=== PATIENT | male | born 1950 | race Caucasian/White ===

== ENCOUNTER 2017-08-10 10:12 | Day surgery (SDC) | payer BC, MEDICARE ==
[2017-08-09 14:04] LABS: BASOPHILS % (AUTO) 0.3 % (0-1); EOSINOPHILS # (AUTO) 0.3 X10'3 (0-0.9); EOSINOPHILS % (AUTO) 2.6 % (0-6); HEMATOCRIT 43.8 % (42.0-52.0); HEMOGLOBIN 15.1 g/dl (14.0-17.9); LYMPHOCYTES # (AUTO) 1.9 X10'3 (1.1-4.8); LYMPHOCYTES % (AUTO) 18.7 % (21-51); MEAN CORPUSCULAR HEMOGLOBIN 30.2 PG (27.0-31.0); MEAN CORPUSCULAR HGB CONC 34.6 % (33.0-36.5); MEAN CORPUSCULAR VOLUME 87.3 FL (78-98); MEAN PLATELET VOLUME 10.8 FL (7.4-10.4); MONOCYTES # (AUTO) 0.5 X10'3 (0-0.9); MONOCYTES % (AUTO) 5.5 % (2-12); NEUTROPHILS # (AUTO) 7.2 X10'3 (1.8-7.7); NEUTROPHILS % (AUTO) 72.9 % (42-75); PLATELET COUNT 174 X10'3 (140-440); RED BLOOD COUNT 5.01 X10'6 (4.70-6.10); RED CELL DISTRIBUTION WIDTH 15.3 % (11.5-14.5); WHITE BLOOD COUNT 9.9 X10'3 (4.5-11.0)
[2017-08-09 14:11] LABS: ALBUMIN 3.8 G/DL (3.4-5.0); ANION GAP 9 (8-16); BLOOD UREA NITROGEN 18 MG/DL (7-18); CALCIUM 9.2 MG/DL (8.5-10.1); CHLORIDE 106 MMOL/L (99-107); GLUCOSE 126 MG/DL (70-104); POTASSIUM 4.4 MMOL/L (3.5-5.1); PROTHROMBIN TIME 10.7 SECONDS (9.0-12.0); SODIUM 139 MMOL/L (135-145); TOTAL CARBON DIOXIDE 23.7 MMOL/L (24-32); eGFR 85 ML/MIN
[2017-08-10] VITALS (16 sets, daily range): BP systolic 115–151; BP diastolic 86–107
[~2017-08-10] VITALS: Ht 180.3 cm; Wt 98.2 kg
[~2017-08-10 10:12] MED LIST: DABI150C PO; DIGO125T4 PO; FEBU40TA PO; FLUT16SP2 NAS; FURO40TA4 PO; MULT1TAB74 PO; MYCO500T PO; POTA20TA10 PO; PRED1TAB PO; SODI650T29 PO; SOTA80TA PO; SOTA80TA69 PO; TACR1CAP28 PO; TEST75GE TP
[2017-08-10] MEDS ORDERED: fentaNYL/PF 50MCG/1 ML 2ML syringe IV ONE (10:25)
[2017-08-10] MEDS ORDERED: MIDAZolam 1mg/ml 10ml vial IV ONE (10:25)
[2017-08-10] MEDS ORDERED: normal saline 1000ml 1,000 ML IV SCH (10:25)
[2017-08-10] MEDS ORDERED: LIDOcaine 1% (10mg/ml) 2ml vial ONE (10:44)
[2017-08-10] MEDS ORDERED: ENOX40SY7 SUBCUT (11:31)
[2017-08-10] MEDS ORDERED: LANS30CA37 PO (11:31)
== END 2017-08-10 15:05 | disposition home or self-care (01) ==
LOC: SSTAY O 10:12 → EDSTATUS 12:30 → SSTAY O 15:05
PROVIDERS: ATTEND Internal Medicine Cardiovascular Disease
DX: I48.91 Unspecified atrial fibrillation (principal); I08.3 Combined rheumatic disorders of mitral, aortic and tricuspid valves; E78.5 Hyperlipidemia, unspecified; G47.30 Sleep apnea, unspecified; I12.9 Hypertensive chronic kidney disease with stage 1 through stage 4 chronic kidney disease, or unspecified chronic kidney disease; N18.6 End stage renal disease; Z95.0 Presence of cardiac pacemaker; Z94.0 Kidney transplant status; Z98.52 Vasectomy status; Z79.899 Other long term (current) drug therapy
CPT/HCPCS: 36415; 80048; 85025; 85610; 93312; 93325; J2250; J3010; J3490; J7030

== ENCOUNTER 2017-10-26 09:59 | Day surgery (SDC) | payer BC, MEDICARE ==
[2017-10-25 14:15] LABS: BASOPHILS % (AUTO) 0.3 % (0-1); EOSINOPHILS # (AUTO) 0.1 X10'3 (0-0.9); EOSINOPHILS % (AUTO) 1.1 % (0-6); HEMATOCRIT 41.6 % (42.0-52.0); HEMOGLOBIN 14.4 g/dl (14.0-17.9); LYMPHOCYTES # (AUTO) 1.7 X10'3 (1.1-4.8); LYMPHOCYTES % (AUTO) 17.6 % (21-51); MEAN CORPUSCULAR HEMOGLOBIN 30.4 PG (27.0-31.0); MEAN CORPUSCULAR HGB CONC 34.7 % (33.0-36.5); MEAN CORPUSCULAR VOLUME 87.8 FL (78-98); MEAN PLATELET VOLUME 11.1 FL (7.4-10.4); MONOCYTES # (AUTO) 0.5 X10'3 (0-0.9); MONOCYTES % (AUTO) 4.8 % (2-12); NEUTROPHILS # (AUTO) 7.5 X10'3 (1.8-7.7); NEUTROPHILS % (AUTO) 76.2 % (42-75); PLATELET COUNT 179 X10'3 (140-440); RED BLOOD COUNT 4.74 X10'6 (4.70-6.10); RED CELL DISTRIBUTION WIDTH 15.2 % (11.5-14.5); WHITE BLOOD COUNT 9.9 X10'3 (4.5-11.0)
[2017-10-25 14:21] LABS: PROTHROMBIN TIME 10.6 SECONDS (9.0-12.0)
[2017-10-25 14:23] LABS: ALBUMIN 3.8 G/DL (3.4-5.0); ANION GAP 10 (8-16); BLOOD UREA NITROGEN 19 MG/DL (7-18); BUN/CREATININE RATIO 19.6 (5.4-32.0); CALCIUM 9.3 MG/DL (8.5-10.1); CHLORIDE 105 MMOL/L (99-107); CREATININE 0.97 MG/DL (0.60-1.10); GLUCOSE 120 MG/DL (70-104); POTASSIUM 4.2 MMOL/L (3.5-5.1); SODIUM 142 MMOL/L (135-145); TOTAL CARBON DIOXIDE 26.6 MMOL/L (24-32); eGFR 78 ML/MIN
[2017-10-26] VITALS (13 sets, daily range): BP systolic 113–133; BP diastolic 86–103
[~2017-10-26] VITALS: Ht 180.3 cm; Wt 101.0 kg
[~2017-10-26 09:59] MED LIST changes: +APIX5TAB3 PO; -DABI150C PO; -DIGO125T4 PO; +FLEC100T2 PO; +METO-395 PO; -SOTA80TA PO; -SOTA80TA69 PO
[2017-10-26] MEDS ORDERED: MIDAZolam 5mg/ml 2ml vial IV PRN (10:25)
[2017-10-26] MEDS ORDERED: diphenhydrAMINE 25mg capsule PO ONE (10:25)
[2017-10-26] MEDS ORDERED: LORazepam 2 mg/ml vial IV ONE (10:25)
[2017-10-26] MEDS ORDERED: morphine 10mg/ml inj. IV PRN (10:25)
[2017-10-26] MEDS ORDERED: LORazepam 0.5 MG tablet PO ONE (11:20)
[2017-10-26] MEDS: normal saline 1000ml 1,000 ML IV SCH ×2 (11:24→12:58)
[2017-10-26] MEDS ORDERED: metoprolol succinate 25mg (24-HOUR) SR. Tablet PO ONE (13:08)
== END 2017-10-26 14:30 | disposition home or self-care (01) ==
LOC: SSTAY O 09:59 → EDSTATUS 12:30 → SSTAY O 14:30
PROVIDERS: ATTEND Internal Medicine Cardiovascular Disease
DX: I48.1 Persistent atrial fibrillation (principal); I08.0 Rheumatic disorders of both mitral and aortic valves; E78.5 Hyperlipidemia, unspecified; I49.5 Sick sinus syndrome; G47.33 Obstructive sleep apnea (adult) (pediatric); I11.0 Hypertensive heart disease with heart failure; I50.30 Unspecified diastolic (congestive) heart failure; M19.90 Unspecified osteoarthritis, unspecified site; Z95.0 Presence of cardiac pacemaker; Z87.891 Personal history of nicotine dependence; Z98.42 Cataract extraction status, left eye; Z94.0 Kidney transplant status; Z98.41 Cataract extraction status, right eye; Z85.828 Personal history of other malignant neoplasm of skin; F41.9 Anxiety disorder, unspecified; Z79.01 Long term (current) use of anticoagulants; Z79.899 Other long term (current) drug therapy; Z98.890 Other specified postprocedural states
CPT/HCPCS: 36415; 80048; 85025; 85610; 93312; J2250; J2270; J7030; Q0163; A4620

== ENCOUNTER 2018-06-08 08:13 | Outpatient (CLI) | payer BC, MEDICARE ==
[~2018-06-08] VITALS: Ht 180.3 cm; Wt 102.0 kg
[2018-06-08] VITALS (9 sets, daily range): BP systolic 132–158; BP diastolic 85–100
[~2018-06-08 08:13] MED LIST changes: -FLEC100T2 PO
[2018-06-08] MEDS ORDERED: normal saline 500ml IV soln 500 ML IV ONE (10:00)
[2018-06-08] MEDS ORDERED: aminophylline 250mg/10ml inj. IV PRN (10:00)
[2018-06-08] MEDS ORDERED: nitroGLYCERIN 0.4mg SUBLingual tab SL PRN (10:00)
[2018-06-08] MEDS ORDERED: regadenoson 0.4mg/5ml syringe IV ONE ×2 (10:00→10:02)
[2018-06-08] MEDS ORDERED: aminophylline inj. 10 ML IV ONE (10:02)
== END 2018-06-08 23:59 | disposition home or self-care (01) ==
LOC: RAD 08:13
PROVIDERS: ATTEND Internal Medicine Cardiovascular Disease
DX: Z01.818 Encounter for other preprocedural examination (principal); R07.9 Chest pain, unspecified; R06.02 Shortness of breath; I10 Essential (primary) hypertension
CPT/HCPCS: 78452; 93017; A9500; J0280; J7030

== ENCOUNTER 2019-05-10 10:10 | Outpatient (CLI) | payer SELFPAY ==
[2019-05-10 10:51] LABS: BASOPHILS % (AUTO) 0.4 % (0-1); EOSINOPHILS # (AUTO) 0.2 X10'3 (0-0.9); EOSINOPHILS % (AUTO) 1.7 % (0-6); HEMATOCRIT 42.8 % (42.0-52.0); HEMOGLOBIN 14.7 g/dl (14.0-17.9); LYMPHOCYTES # (AUTO) 1.9 X10'3 (1.1-4.8); LYMPHOCYTES % (AUTO) 18.6 % (21-51); MEAN CORPUSCULAR HEMOGLOBIN 29.3 PG (27.0-31.0); MEAN CORPUSCULAR HGB CONC 34.4 g/dL (33.0-36.5); MEAN PLATELET VOLUME 9.9 FL (7.4-10.4); MONOCYTES # (AUTO) 0.9 X10'3 (0-0.9); MONOCYTES % (AUTO) 8.3 % (2-12); NEUTROPHILS # (AUTO) 7.3 X10'3 (1.8-7.7); PLATELET COUNT 200 X10'3 (140-440); RED BLOOD COUNT 5.04 X10'6 (4.70-6.10); RED CELL DISTRIBUTION WIDTH 17.6 % (11.5-14.5); WHITE BLOOD COUNT 10.3 X10'3 (4.5-11.0)
[2019-05-10 11:04] LABS: ALBUMIN 3.2 G/DL (3.4-5.0); ANION GAP 10 (8-16); BLOOD UREA NITROGEN 19 MG/DL (7-18); BUN/CREATININE RATIO 19.4 (5.4-32.0); CHLORIDE 104 MMOL/L (99-107); CREATININE 0.98 MG/DL (0.60-1.10); GLUCOSE 145 MG/DL (70-104); POTASSIUM 4.1 MMOL/L (3.5-5.1); SODIUM 139 MMOL/L (135-145); TOTAL CARBON DIOXIDE 25.1 MMOL/L (24-32); eGFR 76 ML/MIN
== END 2019-05-10 14:07 | disposition home or self-care (01) ==
LOC: SSTAY O 10:10 → EDSTATUS 05-11 09:00
PROVIDERS: ATTEND Internal Medicine Cardiovascular Disease
DX: I48.91 Unspecified atrial fibrillation (principal)
CPT/HCPCS: 36415; 80048; 85025; 85610

== ENCOUNTER 2020-05-15 06:19 | Day surgery (SDC) | payer MEDICARE, BC ==
[2020-05-14 16:03] LABS: BASOPHILS # (AUTO) 0.1 X10'3 (0-0.2); BASOPHILS % (AUTO) 0.5 % (0-1); EOSINOPHILS # (AUTO) 0.1 X10'3 (0-0.9); EOSINOPHILS % (AUTO) 1.2 % (0-6); HEMATOCRIT 38.1 % (42.0-52.0); HEMOGLOBIN 12.9 g/dl (14.0-17.9); LYMPHOCYTES # (AUTO) 1.8 X10'3 (1.1-4.8); LYMPHOCYTES % (AUTO) 17.7 % (21-51); MEAN CORPUSCULAR HEMOGLOBIN 27.3 PG (27.0-31.0); MEAN CORPUSCULAR HGB CONC 33.9 g/dL (33.0-36.5); MEAN CORPUSCULAR VOLUME 80.6 FL (78-98); MONOCYTES # (AUTO) 0.7 X10'3 (0-0.9); MONOCYTES % (AUTO) 7.3 % (2-12); NEUTROPHILS # (AUTO) 7.4 X10'3 (1.8-7.7); NEUTROPHILS % (AUTO) 73.3 % (42-75); PLATELET COUNT 232 X10'3 (140-440); RED BLOOD COUNT 4.72 X10'6 (4.70-6.10); WHITE BLOOD COUNT 10.1 X10'3 (4.5-11.0)
[2020-05-14 16:08] LABS: ALBUMIN 3.3 G/DL (3.4-5.0); ANION GAP 11 (8-16); BLOOD UREA NITROGEN 18 MG/DL (7-18); BUN/CREATININE RATIO 21.4 (5.4-32.0); CHLORIDE 103 MMOL/L (99-107); CREATININE 0.84 MG/DL (0.60-1.10); GLUCOSE 133 MG/DL (70-104); POTASSIUM 4.1 MMOL/L (3.5-5.1); SODIUM 138 MMOL/L (135-145); TOTAL CARBON DIOXIDE 24.1 MMOL/L (24-32); eGFR > 90 ML/MIN
[2020-05-14 16:11] LABS: PARTIAL THROMBOPLASTIN TIME 28 SECONDS (22-32)
[~2020-05-15] VITALS: Ht 180.3 cm; Wt 99.7 kg
[2020-05-15] VITALS (10 sets, daily range): BP systolic 104–129; BP diastolic 61–85
[~2020-05-15 06:19] MED LIST changes: +MULT-620 PO; -MULT1TAB74 PO; +TACR1CAP24 PO; -TACR1CAP28 PO
[2020-05-15] MEDS ORDERED: normal saline 1,000 ML IV SCH (06:40)
[2020-05-15] MEDS ORDERED: diphenhydrAMINE 25mg capsule PO PRN (06:40)
[2020-05-15] MEDS ORDERED: LIDOcaine/PRILOcaine 5gm cream TP ONE (06:40)
[2020-05-15] MEDS ORDERED: LORazepam 0.5 MG tablet PO PRN (06:40)
[2020-05-15] MEDS ORDERED: ATOR10TA87 PO (06:53)
[2020-05-15] MEDS ORDERED: FLEC100T35 PO (06:53)
[2020-05-15] MEDS ORDERED: APIX2.5T PO (06:53)
[2020-05-15] MEDS ORDERED: fentaNYL/PF 50MCG/1 ML 2ML syringe ONE (07:29)
[2020-05-15] MEDS ORDERED: verapamil 2.5 mg/ml inj IV ONE (07:29)
[2020-05-15] MEDS ORDERED: nitroGLYCERIN-Tridil 50MG/D5W 250 ML IV ONE (07:29)
[2020-05-15] MEDS ORDERED: midazolam 2 mg/2 ml injection ONE (07:29)
[2020-05-15] MEDS ORDERED: LIDOcaine 1% (10mg/ml)w/preservative injection 20ml MDV ONE (07:29)
[2020-05-15] MEDS ORDERED: iohexol 350 MG/ML 50ML vial IV ONE ×2 (07:30→08:41)
[2020-05-15] MEDS ORDERED: iohexol 350MG/ML 100ml bottle IV ONE (07:30)
[2020-05-15] MEDS ORDERED: heparin 1,000unit/ml 10ml vial 10 ML ONE (07:30)
--- NOTE | 2020-05-15 09:20 | NUR ---
Pt back in room from procedure. NS running at 200ml/hr. vs stable as charted. Pt denies pain, denies cp. Pt site stable and vasc band in place. Will continue to monitor patient.
[2020-05-15] MEDS ORDERED: normal saline 1,000 ML IV ONE (09:47)
--- NOTE | 2020-05-15 12:31 | NUR ---
Pt vascular band removed by sterile technique. Pressure drsg in place. Pt denies numbness and tingling in his right hand. Fluids infusing as ordered. Will continue to monitor.
== END 2020-05-15 14:00 | disposition home or self-care (01) ==
LOC: SSTAY O 06:19
PROVIDERS: ATTEND Internal Medicine Cardiovascular Disease
DX: R94.39 Abnormal result of other cardiovascular function study (principal); I25.10 Atherosclerotic heart disease of native coronary artery without angina pectoris; I13.2 Hypertensive heart and chronic kidney disease with heart failure and with stage 5 chronic kidney disease, or end stage renal disease; N18.6 End stage renal disease; I50.30 Unspecified diastolic (congestive) heart failure; I48.92 Unspecified atrial flutter; E78.49 Other hyperlipidemia; G47.33 Obstructive sleep apnea (adult) (pediatric); I49.5 Sick sinus syndrome; I48.0 Paroxysmal atrial fibrillation; Z98.890 Other specified postprocedural states; Z85.828 Personal history of other malignant neoplasm of skin; Z94.0 Kidney transplant status; Z95.0 Presence of cardiac pacemaker; Z79.899 Other long term (current) drug therapy
CPT/HCPCS: 36415; 76937; 80048; 85025; 85610; 85730; 93005; 93458; 99152; 99153; C1769; C1894; J1644; J2001; J2250; J3010; J7030; Q0163; Q9967; A4620; A5120; A6258; C1751; J3490

== ENCOUNTER 2022-09-08 10:00 | Inpatient (IN) | payer BC, MEDICARE, OTHER ==
[2022-09-01 14:44] LABS: ALBUMIN 3.9 G/DL (3.4-5.0); ALKALINE PHOSPHATASE 91 IU/L (46-116); BLOOD UREA NITROGEN 18 MG/DL (7-18); BUN/CREATININE RATIO 21.4 (5.4-32.0); CALCIUM 9.3 MG/DL (8.5-10.1); CHLORIDE 105 MMOL/L (99-107); CREATININE 0.84 MG/DL (0.60-1.10); PRE OP ALT 25 U/L (30-65); PRE OP ANION GAP 7 (8-16); PRE OP AST 22 U/L (10-37); PRE OP BILIRUB, TOTAL 0.9 MG/DL (0.0-1.0); PRE OP GLUCOSE 148 MG/DL (70-104); PRE OP POTASSIUM 4.2 MMOL/L (3.4-5.1); PRE OP SODIUM 139 MMOL/L (135-145); TOTAL CARBON DIOXIDE 26.9 MMOL/L (24-32); eGFR 90 ML/MIN
[2022-09-01 15:10] LABS: BASOPHILS % (AUTO) 0.3 % (0-1); EOSINOPHILS # (AUTO) 0.1 X10'3 (0-0.9); EOSINOPHILS % (AUTO) 0.6 % (0-6); LYMPHOCYTES # (AUTO) 1.3 X10'3 (1.1-4.8); LYMPHOCYTES % (AUTO) 13.4 % (21-51); MEAN CORPUSCULAR HGB CONC 33.8 g/dL (33.0-36.5); MEAN CORPUSCULAR VOLUME 85.8 FL (78-98); MEAN PLATELET VOLUME 10.1 FL (7.4-10.4); MONOCYTES # (AUTO) 0.6 X10'3 (0-0.9); NEUTROPHILS # (AUTO) 7.7 X10'3 (1.8-7.7); NEUTROPHILS % (AUTO) 79.7 % (42-75); PRE OP HEMOGLOBIN 15.2 g/dL (14.0-17.9); PRE OP PLATELET COUNT 187 X10'3 (140-440); RED BLOOD COUNT 5.24 X10'6 (4.70-6.10); RED CELL DISTRIBUTION WIDTH 16.3 % (11.5-14.5)
[2022-09-08] VITALS (20 sets, daily range): BP systolic 118–167; BP diastolic 66–91
[~2022-09-08] VITALS: Ht 180.3 cm; Wt 97.1 kg
[~2022-09-08 10:00] MED LIST changes: +APIX2.5T PO; -APIX5TAB3 PO; -FEBU40TA PO; -FURO40TA4 PO; -METO-395 PO; -POTA20TA10 PO; +famotidine 20mg tablet PO ONE; +ringers solution, lacted 1,000 ML IV SCH
[2022-09-08] MEDS ORDERED: tetracaine 1% (10mg/ml) pres. free inj. ONE (10:47)
[2022-09-08] MEDS ORDERED: MIDAZolam 1mg/ml 10ml vial ONE (12:50)
[2022-09-08] MEDS ORDERED: ROPIVAcaine 0.5% (5mg/ml) 30ml vial ONE ×3 (12:52→13:31)
[2022-09-08] MEDS ORDERED: ceFAZolin 1000mg inj ONE ×3 (12:52→13:03)
[2022-09-08] MEDS ORDERED: vancomycin 1,000mg inj ONE ×2 (13:03→13:31)
[2022-09-08] MEDS ORDERED: VANCOMYCIN 1,500MG inj. 1,500 MG in normal saline 500ml IV soln 300 ML IV ONE (13:23)
[2022-09-08] MEDS ORDERED: gentamicin 40 MG/1 ML inj ONE (13:31)
[2022-09-08] MEDS ORDERED: enalaprilat dihydrate 2.5mg/2ml vial IV PRN (13:40)
[2022-09-08] MEDS ORDERED: morphine 2 MG/ML inj. syringe IV PRN (13:40)
[2022-09-08] MEDS ORDERED: fentaNYL/PF 50MCG/1 ML 2ML syringe IV PRN ×2 (13:40)
[2022-09-08] MEDS ORDERED: hydrALAZINE 20mg/ml inj. IV PRN (13:40)
[2022-09-08] MEDS ORDERED: morphine 4 MG/ML inj SYRINge IV PRN (13:40)
[2022-09-08] MEDS ORDERED: ondansetron/PF 4mg/2ml inj IV PRN ×2 (13:40→14:50)
[2022-09-08] MEDS ORDERED: ringers solution, lacted 1,000 ML IV SCH (13:40)
[2022-09-08] MEDS ORDERED: acetaminophen 325mg tablet PO PRN (14:50)
[2022-09-08] MEDS ORDERED: HYDROcodone/acetaminophen 10/325mg tab PO PRN ×2 (14:50)
[2022-09-08] MEDS ORDERED: magnesium hydroxide 30ml (MOM) UD suspension PO PRN (14:50)
[2022-09-08] MEDS ORDERED: HYDROmorphone inj. 0.5 MG/0.5 ML DISP.SYRIN IV PRN (14:50)
[2022-09-08] MEDS ORDERED: naloxone 0.4 mg/ml inj IV PRN (14:50)
[2022-09-08] MEDS ORDERED: bisacodyl 10mg suppository rectal RC PRN (14:50)
[2022-09-08] MEDS ORDERED: diphenhydrAMINE 25mg capsule PO PRN ×2 (14:50)
--- NOTE | 2022-09-08 14:55 | NUR ---
Received from OR via SURGICAL BED , accompanied by Anesthesiologist DR ROSALES and report given by Anesthesiolgist. PT AROUSABLE. STRONG PALPABLE PEDAL PULSE TO RIGHT FOOT. PT DENIES PAIN. DRSG TO RIGHT KNEE CDI. KNEE IMMOBILIZER IN PLACE.
--- NOTE | 2022-09-08 14:55 | NUR ---
F/C TO LEFT OF BED DRAINING CLEAR YELLOW URINE. PT NOT YET ABLE TO WIGGLE TOES. SENSATION LEVEL IS AT APPROX T6 LEVEL AT THIS TIME.
[2022-09-08 15:19] LABS: APPEARANCE,SYNOVIAL FLUID CLOUDY; COLOR,SYNOVIAL FLUID YELLOW; LYMPHOCYTES,SYNOVIAL FLUID 2 % (0-75); MONOCYTES,SYNOVIAL FLUID 2 % (0-0); NEUTROPHILS,SYNOVIAL FLUID 96 % (0-25); SYN RBC 450 /CU MM (0); SYN WBC 5950 /CU MM (0-200)
--- NOTE | 2022-09-08 15:55 | NUR ---
PT HAS BEEN RECOVERED FROM ANESTHESIA AND IS READY FOR X DAVE TO ROOM. NO ROOM YET AVAILABLE ON SURGICAL FLOOR SO PT WILL BE HELD IN PACU UNTILL ROOM IS AVAILABLE.
[2022-09-08] MEDS ORDERED: ceFAZolin/D5W- 1GM premix 50 ML IV SCH (16:00)
--- NOTE | 2022-09-08 17:28 | NUR ---
temp 36.7. vss. pt starting to shiver a bit. jairo hugger on. pt denies pain and nausea. will continue to monitor shivers and will give demerol if shivers continue.
--- NOTE | 2022-09-08 18:15 | NUR ---
PT NO LONGER SHIVERING. COMFORTABLE AND STILL AWAITING ROOM AND DINNER TRAY. PT SHOULD BE ABLE TO GO TO ROOM AFTER SHIFT CHANGE SHORTLY. REPORT GIVEN TO DAVID ABBOTT IN PACU WHO WILL ASSUME CARE UNTIL PT IS TRANSFERRED TO SURGICAL FLOOR.
--- NOTE | 2022-09-08 19:25 | NUR ---
PT TRANSPORTED BY STAFF TO ROOM 60B VIA BED. PT GIVEN CALL LIGHT AND NURSE IS AT BEDSIDE. PT BELONGINGS PLACED IN CLOSET; CPAP REMAINS AT BEDSIDE. Addendum: 09/08/22 at 1943 by Oralia Tinoco RN Amended: Links added.
--- NOTE | 2022-09-08 19:40 | NUR ---
PATIENT ADMITTED TO ROOM 360B FROM RECOVERY ROOM AFTER REMOVAL OF INFECTED RIGHT KNEE HARDWARE AND PLACEMENT OF ANTIBIOTIC SPACERS. PLACED COMFORTABLE IN BED. VITAL SIGNS TAKEN AND RECORDED.
--- NOTE | 2022-09-08 19:45 | NUR ---
PER RECOVERY ROOM NURSE PATIENT HAS BEEN ON POST OP VITAL IN RECOVERY ROOM, HAS BEEN BACK FROM OR SINCE 145 AND WAS JUST TRANSFERRED HERE IN SURGICAL FLOOR PATIENT JUST NEED POST OP HOURLY VITALS X2.
[2022-09-08] MEDS ORDERED: vancomycin/NS 1 GM ADD-VANTAGE 250 ML IV SCH (20:00)
[2022-09-08] MEDS: fluticasone nasal spray 16GM bottle NS SCH (20:00)
[2022-09-08] MEDS: potassium cl 20mEq in 1/2 NS 1,000 ML IV SCH (20:00)
[2022-09-08] MEDS: oxyCODONE IR 5mg (immed. release) tablet PO PRN (22:04)
[2022-09-08] MEDS: mycophenolate mofetil 250mg capsule PO SCH (22:05)
[2022-09-08] MEDS: sodium bicarbonate 650mg tablet PO SCH (22:06)
[2022-09-08] MEDS: tacrolimus anhydrous 1mg capsule PO SCH (22:07)
[2022-09-08] MEDS: apixaban 2.5mg tablet PO SCH (22:07)
[2022-09-08] MEDS: sennosides 8.6mg tablet PO SCH (22:08)
[2022-09-08] MEDS: ceFAZolin/D5W- 1GM premix 50 ML IV SCH (22:11)
[2022-09-09 02:00] VITALS: BP 156/78
[2022-09-09] MEDS: oxyCODONE IR 5mg (immed. release) tablet PO PRN ×3 (02:14→19:11)
[2022-09-09] MEDS: potassium cl 20mEq in 1/2 NS 1,000 ML IV SCH ×4 (02:16→22:50)
[2022-09-09] MEDS: ceFAZolin/D5W- 1GM premix 50 ML IV SCH (04:34)
[2022-09-09 06:00] VITALS: BP 158/76
--- NOTE | 2022-09-09 06:10 | NUR ---
Patient in room [facility]. I have received report from Manda Holman RN and had the opportunity to ask questions and assume patient care.
--- NOTE | 2022-09-09 06:46 | NUR ---
Problems reprioritized. Patient report given, questions answered & plan of care reviewed with SHIRAZ ABBOTT.
[2022-09-09 07:02] LABS: BASOPHILS % (AUTO) 0.1 % (0-1); EOSINOPHILS % (AUTO) 0.1 % (0-6); HEMATOCRIT 39.6 % (42.0-52.0); HEMOGLOBIN 13.7 g/dl (14.0-17.9); LYMPHOCYTES # (AUTO) 1.2 X10'3 (1.1-4.8); LYMPHOCYTES % (AUTO) 7.4 % (21-51); MEAN CORPUSCULAR HEMOGLOBIN 29.2 PG (27.0-31.0); MEAN CORPUSCULAR HGB CONC 34.5 g/dL (33.0-36.5); MEAN CORPUSCULAR VOLUME 84.5 FL (78-98); MEAN PLATELET VOLUME 9.8 FL (7.4-10.4); MONOCYTES # (AUTO) 1.7 X10'3 (0-0.9); MONOCYTES % (AUTO) 9.8 % (2-12); NEUTROPHILS % (AUTO) 82.6 % (42-75); PLATELET COUNT 187 X10'3 (140-440); RED BLOOD COUNT 4.69 X10'6 (4.70-6.10); RED CELL DISTRIBUTION WIDTH 15.5 % (11.5-14.5); WHITE BLOOD COUNT 16.9 X10'3 (4.5-11.0)
[2022-09-09 07:06] LABS: ANION GAP 8 (8-16); CHLORIDE 101 MMOL/L (99-107); SODIUM 132 MMOL/L (135-145); TOTAL CARBON DIOXIDE 23.1 MMOL/L (24-32)
[2022-09-09 07:07] LABS: POTASSIUM 4.3 MMOL/L (3.5-5.1)
[2022-09-09] MEDS: sodium bicarbonate 650mg tablet PO SCH ×3 (08:00→21:07)
[2022-09-09] MEDS: TESTOSTERONE PUMP TP SCH (08:00)
[2022-09-09] MEDS: fluticasone nasal spray 16GM bottle NS SCH ×2 (08:36→21:13)
[2022-09-09] MEDS: predniSONE 5mg tablet PO SCH (08:38)
[2022-09-09] MEDS: mycophenolate mofetil 250mg capsule PO SCH ×2 (08:38→21:08)
[2022-09-09] MEDS: tacrolimus anhydrous 1mg capsule PO SCH ×2 (08:38→21:08)
[2022-09-09] MEDS: aspirin 325mg tablet PO SCH (08:39)
[2022-09-09] MEDS: apixaban 2.5mg tablet PO SCH ×2 (08:39→21:08)
[2022-09-09] MEDS: multivitamins, therapeutics tablet PO SCH (08:39)
[2022-09-09 10:00] VITALS: BP 162/79
[2022-09-09] MEDS ORDERED: vancomycin/NS 1 GM ADD-VANTAGE 250 ML IV SCH (11:08)
--- NOTE | 2022-09-09 11:31 | NUR ---
Joint surgery consult: Pt s/p R TKA removal w/ antibiotic spacer placement this admit per EMR. Pt seen by TREY for written/verbal high protein diet ed w/ RD contact information provided. TREY encouraged pt to contact dietitian's office if further nutrition questions/concerns. Addendum: 09/09/22 at [address] Amended: Links added.
--- NOTE | 2022-09-09 12:14 | NUR ---
Picc nurse paged
[2022-09-09] MEDS ORDERED: VANCOmycin 2,000MG in NS 500ml IV soln IV ONE (12:30)
--- NOTE | 2022-09-09 14:08 | NUR ---
Called and spoke to pharmacist aware patient has history of renal disease. Per pharmacy per Creat[facility] clearance ok to give loading dose of vancomycin
--- NOTE | 2022-09-09 15:16 | NUR ---
Called picc nurse and she verified that picc line is ok to use. Will start antibiotics and fluids
[2022-09-09 18:00] VITALS: BP 151/101
--- NOTE | 2022-09-09 18:00 | NUR ---
I have reviewed and agree with interventions, assessments performed, and documentation by Beatrice Gastelum LVN.
--- NOTE | 2022-09-09 18:36 | NUR ---
Problems reprioritized. Patient report given, questions answered & plan of care reviewed with Manda Holman RN.
--- NOTE | 2022-09-09 18:40 | NUR ---
Patient in room [facility]. I have received report from SHIRAZ LAMB and had the opportunity to ask questions and assume patient care.
[2022-09-09] MEDS: sennosides 8.6mg tablet PO SCH (21:09)
[2022-09-09 22:00] VITALS: BP 137/64
[2022-09-10] MEDS: vancomycin/NS 1 GM ADD-VANTAGE 250 ML IV SCH ×2 (02:43→13:56)
[2022-09-10] MEDS: oxyCODONE IR 5mg (immed. release) tablet PO PRN ×4 (02:48→20:01)
[2022-09-10] MEDS: potassium cl 20mEq in 1/2 NS 1,000 ML IV SCH (05:27)
[2022-09-10] MEDS: HYDROmorphone 1 mg/ml syringe IV PRN (05:51)
[2022-09-10 06:00] VITALS: BP 151/64
--- NOTE | 2022-09-10 06:37 | NUR ---
Problems reprioritized. Patient report given, questions answered & plan of care reviewed with DOTTIE ABBOTT.
[2022-09-10 06:59] LABS: ALBUMIN 2.8 G/DL (3.4-5.0); ANION GAP 9 (8-16); BASOPHILS % (AUTO) 0.1 % (0-1); BLOOD UREA NITROGEN 10 MG/DL (7-18); BUN/CREATININE RATIO 14.5 (5.4-32.0); C-REACTIVE PROTEIN 19.95 MG/DL (0.0-0.5); CALCIUM 8.9 MG/DL (8.5-10.1); CHLORIDE 100 MMOL/L (99-107); CREATININE 0.69 MG/DL (0.60-1.10); EOSINOPHILS % (AUTO) 0 % (0-6); GLUCOSE 146 MG/DL (70-104); HEMATOCRIT 35.7 % (42.0-52.0); HEMOGLOBIN 12.2 g/dl (14.0-17.9); LYMPHOCYTES # (AUTO) 1.3 X10'3 (1.1-4.8); LYMPHOCYTES % (AUTO) 7.1 % (21-51); MEAN CORPUSCULAR HEMOGLOBIN 28.9 PG (27.0-31.0); MEAN CORPUSCULAR HGB CONC 34.2 g/dL (33.0-36.5); MEAN CORPUSCULAR VOLUME 84.5 FL (78-98); MEAN PLATELET VOLUME 10.4 FL (7.4-10.4); MONOCYTES # (AUTO) 2.1 X10'3 (0-0.9); MONOCYTES % (AUTO) 11.1 % (2-12); NEUTROPHILS # (AUTO) 15.3 X10'3 (1.8-7.7); NEUTROPHILS % (AUTO) 81.7 % (42-75); PLATELET COUNT 170 X10'3 (140-440); RED BLOOD COUNT 4.23 X10'6 (4.70-6.10); RED CELL DISTRIBUTION WIDTH 15.7 % (11.5-14.5); SODIUM 132 MMOL/L (135-145); TOTAL CARBON DIOXIDE 22.7 MMOL/L (24-32); WHITE BLOOD COUNT 18.7 X10'3 (4.5-11.0); eGFR > 90 ML/MIN
--- NOTE | 2022-09-10 07:18 | NUR ---
Notified Karina Brown of Hematoma/ blood blister at incision site of patients right knee. Reinforced dressing and wrapped with yeni wrap casa. and placed ice on it.
--- NOTE | 2022-09-10 07:44 | NUR ---
Spoke to Karina hinojosa regarding patient bleeding from blister at incision site, Received orders to still give patient his Eliquis this morning. She is also aware that patient has a slight temp of 100, and will give patient an IS and educate and encourage use. Also, she is aware that patient WBC came up today to 1837 from 16.9, no new orders at this time.
[2022-09-10] MEDS: fluticasone nasal spray 16GM bottle NS SCH ×2 (07:55→20:00)
[2022-09-10] MEDS: multivitamins, therapeutics tablet PO SCH (07:55)
[2022-09-10] MEDS: aspirin 325mg tablet PO SCH (07:55)
[2022-09-10] MEDS: mycophenolate mofetil 250mg capsule PO SCH ×2 (07:56→20:00)
[2022-09-10] MEDS: predniSONE 5mg tablet PO SCH (07:56)
[2022-09-10] MEDS: sodium bicarbonate 650mg tablet PO SCH ×3 (07:56→20:02)
[2022-09-10] MEDS: apixaban 2.5mg tablet PO SCH ×2 (07:56→20:01)
[2022-09-10] MEDS: TESTOSTERONE PUMP TP SCH (08:00)
[2022-09-10 09:37] LABS: TOTAL CELLS COUNTED 100
[2022-09-10 09:40] LABS: ELLIPTOCYTES FEW; PLATELET ESTIMATE NORMAL
[2022-09-10 09:41] LABS: ANISOCYTOSIS FEW
[2022-09-10] MEDS: tacrolimus anhydrous 1mg capsule PO SCH ×2 (09:47→20:02)
[2022-09-10 10:00] VITALS: BP 148/74
[2022-09-10 18:00] VITALS: BP 151/64
--- NOTE | 2022-09-10 18:31 | NUR ---
Problems reprioritized. Patient report given, questions answered & plan of care reviewed with Ravi ABBOTT, Karen ramachandran. Addendum: 09/10/22 at 1835 by Kary Santana RN Correction report given to Manda Holman RN
--- NOTE | 2022-09-10 18:40 | NUR ---
Patient in room [facility]. I have received report from DOTTIE ABBOTT and had the opportunity to ask questions and assume patient care.
[2022-09-10] MEDS: sennosides 8.6mg tablet PO SCH (20:02)
[2022-09-10 21:53] VITALS: BP 151/64
[2022-09-10 22:00] VITALS: BP 116/64
[2022-09-11] MEDS ORDERED: VANCOMYCIN LEVEL IV ONE (00:30)
[2022-09-11 00:58] LABS: BASOPHILS % (AUTO) 0.2 % (0-1); EOSINOPHILS % (AUTO) 0.2 % (0-6); HEMATOCRIT 31.3 % (42.0-52.0); LYMPHOCYTES # (AUTO) 1.6 X10'3 (1.1-4.8); LYMPHOCYTES % (AUTO) 11.4 % (21-51); MEAN CORPUSCULAR HEMOGLOBIN 29.7 PG (27.0-31.0); MEAN CORPUSCULAR HGB CONC 35.3 g/dL (33.0-36.5); MEAN CORPUSCULAR VOLUME 84.3 FL (78-98); MEAN PLATELET VOLUME 9.7 FL (7.4-10.4); MONOCYTES # (AUTO) 1.4 X10'3 (0-0.9); MONOCYTES % (AUTO) 9.8 % (2-12); NEUTROPHILS % (AUTO) 78.4 % (42-75); PLATELET COUNT 145 X10'3 (140-440); RED BLOOD COUNT 3.72 X10'6 (4.70-6.10); RED CELL DISTRIBUTION WIDTH 16.2 % (11.5-14.5)
[2022-09-11] MEDS: vancomycin/NS 1 GM ADD-VANTAGE 250 ML IV SCH (01:36)
[2022-09-11 05:30] VITALS: BP 142/69
[2022-09-11] MEDS: oxyCODONE IR 5mg (immed. release) tablet PO PRN ×3 (05:41→14:06)
--- NOTE | 2022-09-11 06:50 | NUR ---
Patient in room [facility]. I have received report from Manda Holman RN and had the opportunity to ask questions and assume patient care.
--- NOTE | 2022-09-11 06:50 | NUR ---
Problems reprioritized. Patient report given, questions answered & plan of care reviewed with JAVY RN.
[2022-09-11] MEDS: normal saline 1000ml 1,000 ML IV SCH ×2 (07:20→12:23)
[2022-09-11] MEDS: fluticasone nasal spray 16GM bottle NS SCH (08:28)
[2022-09-11] MEDS: aspirin 325mg tablet PO SCH (08:30)
[2022-09-11] MEDS: sodium bicarbonate 650mg tablet PO SCH ×2 (08:30→13:14)
[2022-09-11] MEDS: multivitamins, therapeutics tablet PO SCH (08:31)
[2022-09-11] MEDS: apixaban 2.5mg tablet PO SCH (08:31)
[2022-09-11] MEDS: predniSONE 5mg tablet PO SCH (08:32)
[2022-09-11] MEDS: tacrolimus anhydrous 1mg capsule PO SCH (08:33)
[2022-09-11] MEDS: mycophenolate mofetil 250mg capsule PO SCH (08:35)
--- NOTE | 2022-09-11 08:37 | NUR ---
Student Medication Administration: For this medication-pass time frame, all medication were reviewed, dispensed, administered and documented per hospital policy by Ngozi student Nurse and Ursula nursing intructor.
[2022-09-11 10:00] VITALS: BP 115/63
--- NOTE | 2022-09-11 10:02 | NUR ---
Student Medication Administration: For this medication-pass time frame, all medication were reviewed, dispensed, administered and documented per hospital policy by Ngozi student nurse and Martine nursing intructor.
[2022-09-11] MEDS: HYDROmorphone 1 mg/ml syringe IV PRN ×2 (12:21→17:03)
[2022-09-11] MEDS ORDERED: VANCOmycin 1250MG/NS 250ml Bag 250 ML IV SCH (13:00)
--- NOTE | 2022-09-11 13:19 | NUR ---
Student Medication Administration: For this medication-pass time frame, all medication were reviewed, dispensed, administered and documented per hospital policy by Ngozi student nurse and Ursula doctor of nursing practice.
--- NOTE | 2022-09-11 17:20 | NUR ---
DC inst provided to pt. No IV to DC (Pt sent home w/RUE PICC asymptomatic, intact & patent. All belongings sent w/pt. WC to vehicle.
--- NOTE | 2022-09-11 18:25 | NUR ---
Student documentation: I have reviewed and agree with all interventions, assessments performed and documented by Yanira Diaz student nurse, by Ryan Salter RN Instructor.
[2022-09-13] MEDS ORDERED: VANCOMYCIN LEVEL IV ONE (00:30)
== END 2022-09-11 17:20 | disposition home or self-care (01) | DRG 464 ==
LOC: PAS IN 10:06 → SUR 3N 19:41
PROVIDERS: ADMIT Orthopaedic Surgery; ATTEND Orthopaedic Surgery
PROC: 0SPC0JZ Removal of Synthetic Substitute from Right Knee Joint, Open Approach (ICD-10-PCS; 2022-09-08)
PROC: 3E0T3BZ Introduction of Anesthetic Agent into Peripheral Nerves and Plexi, Percutaneous Approach (ICD-10-PCS; 2022-09-08)
PROC: 3E0T33Z Introduction of Anti-inflammatory into Peripheral Nerves and Plexi, Percutaneous Approach (ICD-10-PCS; 2022-09-08)
PROC: 0SHC08Z Insertion of Spacer into Right Knee Joint, Open Approach (ICD-10-PCS; principal; 2022-09-08 12:41)
PROC: 02HV33Z Insertion of Infusion Device into Superior Vena Cava, Percutaneous Approach (ICD-10-PCS; 2022-09-09)
PROC: B548ZZA Ultrasonography of Superior Vena Cava, Guidance (ICD-10-PCS; 2022-09-09)
DX: T84.53XA Infection and inflammatory reaction due to internal right knee prosthesis, initial encounter (principal); M00.9 Pyogenic arthritis, unspecified; Z94.0 Kidney transplant status; I48.0 Paroxysmal atrial fibrillation; M65.861 Other synovitis and tenosynovitis, right lower leg; N18.9 Chronic kidney disease, unspecified; Y83.1 Surgical operation with implant of artificial internal device as the cause of abnormal reaction of the patient, or of later complication, without mention of misadventure at the time of the procedure; Z79.60 Long term (current) use of unspecified immunomodulators and immunosuppressants; Z95.0 Presence of cardiac pacemaker; Y83.8 Other surgical procedures as the cause of abnormal reaction of the patient, or of later complication, without mention of misadventure at the time of the procedure; Y92.230 Patient room in hospital as the place of occurrence of the external cause
CPT/HCPCS: 36569; Z7506; Z7508; 36415; 71045; 76942; 80048; 80051; 80053; 80202; 82948; 85007; 85025; 85651; 86140; 87070; 87075; 87081; 89051; 94760; 97116; 97161; 97530; A4618; A6223; A6253; A6446; A6449; A7000; C1713; C1751; C1776; G0378; J0690; J1170; J1580; J2250; J2405; J2795; J3370; J3480; J3490; J7030; J7040; J7120; J7507; J7512; J7517; L1832

== ENCOUNTER 2023-11-10 07:32 | Emergency (ER) | payer OTHER ==
[~2023-11-10] VITALS: Ht 180.3 cm; Wt 103.6 kg
[~2023-11-10 07:32] MED LIST changes: -APIX2.5T PO; +APIX5TAB3 PO; -famotidine 20mg tablet PO ONE; -ringers solution, lacted 1,000 ML IV SCH
[2023-11-10 07:34] VITALS: BP 154/98; PULSE 80; RESP 16; TEMP 97.8; O2SAT 99
== END 2023-11-10 09:29 | disposition home or self-care (01) ==
LOC: ER 07:32
DX: M96.830 Postprocedural hemorrhage of a musculoskeletal structure following a musculoskeletal system procedure (principal); Z91.048 Other nonmedicinal substance allergy status; I48.91 Unspecified atrial fibrillation
CPT/HCPCS: 12001; 99282; A6222; A6258; A6446; A6449